=== PATIENT | female | born 2000 | race Caucasian/White ===

== ENCOUNTER 2019-05-06 22:59 | Emergency (ER) | payer SELFPAY ==
[~2019-05-06] VITALS: Ht 152.4 cm; Wt 57.7 kg
[~2019-05-06 22:59] MED LIST: ACET500C5 PO; CEPH-443 PO; PREN-93 PO
[2019-05-06 23:04] VITALS: BP 110/67; PULSE 77; RESP 18; Ht 152.4 cm; Wt 57.7 kg
[2019-05-07] MEDS ORDERED: ACETAMINOPHEN 500 MG TAB PO STA (00:31)
--- NOTE | 2019-05-07 00:31 | ERD ---
ER Documentation Chief Complaint Chief Complaint Pelvic pain X 3 days, LMP 04/16 HPI This is a 18-year-old female who presents here in the emergency department with complaints of pain and cramping that started 3 days ago. Stated that she did a home today and found that it was positive. LMP: March 20, 2019. DAT: Unknown. G1, . Denies headache, head injury, loss of consciousness, dizziness, neck pain, neck stiffness, throat pain, difficulty swallowing, difficulty breathing lying flat, shoulder pain, chest pain, back pain, abdominal pain, nausea, vomiting, constipation, diarrhea, urinary symptoms, or possibility being , loss of bowel and bladder control, trauma, injury, falls, difficulty walking due to pain, numbness or tingling sensation, calf pain, recent travel, recent major surgery in the last 3 weeks, calf pain, recent long travel, recent exposure to any illness, recent antibiotic use in the last 3 months, fever, chills, seizures. Past medical history: Denies. Surgical history: Denies. Social: Denies smoking, use of alcoholic beverages, use of illegal drugs. ROS All systems reviewed and are negative except as per history of present illness. Medications Home Meds Active Scripts Acetaminophen* (Tylophen*) 500 Mg Capsule, 1 CAP PO Q6H PRN for PAIN AND OR ELEVATED TEMP, #20 CAP Prov:CHARLIE MILES PA-C 05/10/19 Cephalexin* (Keflex*) 500 Mg Capsule, 500 MG PO BID for 5 Days, CAP Prov:CHARLIE MILES PA-C 05/10/19 Cephalexin* (Keflex*) 500 Mg Capsule, 500 MG PO TID for 7 Days, CAP Prov:ANIL MYERS F 05/07/19 Vit No.124/Iron/FA ( Vitamin Tablet) 1 Each Tablet, 1 EACH PO DAILY, #30 TAB Prov:RAMESH MYERSAR F 05/07/19 Acetaminophen* (Tylophen*) 500 Mg Capsule, 1 CAP PO Q6H PRN for PAIN AND OR ELEVATED TEMP, #20 CAP Prov:PASILABANRAMESHAR F 05/07/19 Allergies Allergies: Coded Allergies: No Known Allergy (Unverified , 05/06/19) Physical Exam Vitals Physical Exam Const: No acute distress Head: Atraumatic Eyes: Normal Conjunctiva. Eyeballs are not sunken. No signs of severe dehydration. ENT: Normal External Ears, Nose and Mouth. Neck: Full range of motion. No meningismus. No nuchal rigidity. No signs of meningeal irritation. Resp: Clear to auscultation bilaterally. No accessory muscle use in breathing. Cardio: Regular rate and rhythm, no murmurs Abd: Soft, non tender, non distended. Normal bowel sounds. Negative Louis sign. Negative Dovray sign (heel jar test). Negative psoas sign. Negative Rovsing sign. Able to jump 10 times without developing lower abdominal pain. Ambulatory with steady gait and without pain to lower abdomen. Skin: No petechiae or rashes. Color appears normal for ethnicity. No skin tenting. No signs of severe dehydration. Back: No midline or flank tenderness. No CVA tenderness. Ext: No cyanosis, or edema Neur: Awake and alert. No neurological deficits. Psych: Normal Mood and Affect Results 24 hrs Laboratory Tests Test 05/07/19 00:41 White Blood Count 9.5 10^3/ul Red Blood Count 4.52 10^6/ul Hemoglobin 12.9 g/dl Hematocrit 37.7 % Mean Corpuscular Volume 83.4 fl Mean Corpuscular Hemoglobin 28.5 pg Mean Corpuscular Hemoglobin Concent 34.2 g/dl Red Cell Distribution Width 12.1 % Platelet Count 283 10^3/UL Mean Platelet Volume 9.2 fl Immature Granulocytes % 0.300 % Neutrophils % 72.9 % Lymphocytes % 20.6 % Monocytes % 4.9 % Eosinophils % 1.0 % Basophils % 0.3 % Nucleated Red Blood Cells % 0.0 /100WBC Immature Granulocytes # 0.030 10^3/ul Neutrophils # 6.9 10^3/ul Lymphocytes # 2.0 10^3/ul Monocytes # 0.5 10^3/ul Eosinophils # 0.1 10^3/ul Basophils # 0.0 10^3/ul Nucleated Red Blood Cells # 0.0 10^3/ul Urine Color YELLOW Urine Clarity CLEAR Urine pH 6.0 Urine Specific [place] 1.011 Urine Ketones NEGATIVE mg/dL Urine Nitrite NEGATIVE mg/dL Urine Bilirubin NEGATIVE mg/dL Urine Urobilinogen NEGATIVE mg/dL Urine Leukocyte Esterase NEGATIVE Jero/ul Urine Hemoglobin NEGATIVE mg/dL Urine Glucose NEGATIVE mg/dL Urine Total Protein NEGATIVE mg/dl Urine Test POSITIVE Sodium Level 139 mmol/L Potassium Level 3.3 mmol/L Chloride Level 104 mmol/L Carbon Dioxide Level 23 mmol/L Anion Gap 12 Blood Urea Nitrogen 6 mg/dl Creatinine 0.51 mg/dl Est Glomerular Filtrat Rate mL/min > 60 mL/min Glucose Level 127 mg/dl Calcium Level 9.3 mg/dl Total Bilirubin 0.4 mg/dl Direct Bilirubin 0.00 mg/dl Indirect Bilirubin 0.4 mg/dl Aspartate Amino Transf (AST/SGOT) 21 IU/L Alanine Aminotransferase (ALT/SGPT) 16 IU/L Alkaline Phosphatase 68 IU/L Total Protein 7.2 g/dl Albumin 4.1 g/dl Globulin 3.10 g/dl Albumin/Globulin Ratio 1.32 Amylase Level 61 U/L Lipase 44 U/L Beta HCG, Quantitative 36660.0 mIU/ml Current Medications Medications Dose Sig/Promise Start Time Status Last (Trade) Ordered Route PRN Stop Time Admin Dose Reason Admin 500 mg ONCE STAT 05/07/19 DC 05/07/19 Acetaminophen PO 00:31 00:48 (Tylenol 05/07/19 00:36 Tab) Potassium 20 meq ONCE STAT 05/07/19 DC 05/07/19 Chloride PO 02:00 02:11 (Klor-Con 20) 05/07/19 02:01 Ondansetron 4 mg ONCE STAT 05/07/19 DC 05/07/19 HCl (Zofran ODT 02:00 02:11 Odt) 05/07/19 02:01 Lidocaine 20 ml ONCE ONCE 05/07/19 DC (Xylocaine SC 02:30 1% (Mdv) 20 05/07/19 02:31 ml) Procedures/MDM Diagnostic tests: Urinalysis: Reviewed. Culture urine: Sent. Type and Rh: Reviewed. hCG quantitative: Reviewed. Blood works: Reviewed. OB ultrasound: Single live intrauterine gestation of 6 weeks 2 days menstrual age by ultrasound dates. Expected date of delivery is 12/29/2019. Treatment: Tylenol. K-Dur. Procedure: Incision and drainage of paronychia. Lidocaine 1% 2 cc digital block. Scalpel was used to do a small incision at the base of left thumb. Drained mucopurulent discharge. Capillary feels to left thumb is less than 2 seconds. No subungual hematoma. No neurovascular deficits. Re-evaluation: No episode of emesis here in emergency department. Negative Louis sign. Negative Soledad sign (heel jar test). Negative psoas sign. Negative Rovsing sign. No CVA tenderness. Stated that she feels much better at this time and that she is ready to go home. Stated that she is comfortable to go home. Differential diagnosis I have low suspicion for cholecystitis, pancreatitis, sepsis, diverticulitis, diverticulitis with abscess, appendicitis, nephrolithiasis, pyelonephritis, obstructing kidney stones, septic stone, ovarian torsion, ovarian cyst rupture, ectopic . Final diagnosis: Abdominal pain in . Paronychia Prescription: Tylenol. vitamins. Keflex. Follow-up with OB in the next 24-48 hours. Come back here in the emergency department for any new symptoms or any worsening symptoms. All questions and concerns were answered. Patient and family members verbalized understanding and agreed with plan of care. Hemodynamically stable on discharge. Departure Diagnosis: Primary Impression: Pelvic pain affecting Additional Impression: Paronychia Condition: Stable Additional Instructions: Follow-up with OB in the next 24-48 hours. Come back here in the emergency department for any new symptoms or any worsening symptoms. ANIL MYERS May 07, 2019 00:31
[2019-05-07] MEDS ORDERED: ONDANSETRON (ODT) 4 MG TAB ODT STA (02:00)
[2019-05-07] MEDS ORDERED: POTASSIUM CHLORIDE (SR) 20 MEQ TAB PO STA (02:00)
[2019-05-07] MEDS ORDERED: LIDOCAINE 1% (MDV) 20 ML INJ SC ONE (02:30)
== END 2019-05-07 03:44 | disposition home or self-care (01) ==
LOC: FTE 22:59
DX: O26.891 Other specified pregnancy related conditions, first trimester (principal); R10.2 Pelvic and perineal pain; L03.011 Cellulitis of right finger; O99.711 Diseases of the skin and subcutaneous tissue complicating pregnancy, first trimester; Z3A.01 Less than 8 weeks gestation of pregnancy
CPT/HCPCS: 36415; 76801; 80053; 81003; 82150; 83690; 84702; 84703; 85025; 86900; 86901; 87086

== ENCOUNTER 2019-05-10 04:25 | Emergency (ER) | payer SELFPAY ==
[~2019-05-10] VITALS: Ht 162.6 cm; Wt 58.0 kg
[2019-05-10 04:35] VITALS: BP 121/82; PULSE 96; RESP 24; Ht 162.6 cm; Wt 58.0 kg
[2019-05-10] MEDS ORDERED: ACETAMINOPHEN 500 MG TAB PO STA (05:24)
--- NOTE | 2019-05-10 06:35 | ERD ---
ER Documentation Chief Complaint Chief Complaint Pt reports L thumb is more swollen than sunday HPI Patient 18-year-old female who is and was seen in the ED on Sunday for a swollen left thumb. Patient was discharged with antibiotics. Patient did not fill her antibiotics she is reporting back to the ED because she is still having pain and concerns that the antibiotics are not safe in . The patient was discharged with prescription for Keflex. The patient denies allergies to medication. The patient's vitals are in stable limits. The patient denies abdominal pain vaginal bleeding or any complications with this . Patient states she is in pain and rates the pain 8 out of 10. ROS All systems reviewed and are negative except as per history of present illness. Medications Home Meds Active Scripts Acetaminophen* (Tylophen*) 500 Mg Capsule, 1 CAP PO Q6H PRN for PAIN AND OR ELEVATED TEMP, #20 CAP Prov:CHARLIE MILES PA-C 05/10/19 Cephalexin* (Keflex*) 500 Mg Capsule, 500 MG PO BID for 5 Days, CAP Prov:CHARLIE MILES PA-C 05/10/19 Cephalexin* (Keflex*) 500 Mg Capsule, 500 MG PO TID for 7 Days, CAP Prov:ANIL MYERS F 05/07/19 Vit No.124/Iron/FA ( Vitamin Tablet) 1 Each Tablet, 1 EACH PO DAILY, #30 TAB Prov:MIKEJUSTINRAMESHANITRA F 05/07/19 Acetaminophen* (Tylophen*) 500 Mg Capsule, 1 CAP PO Q6H PRN for PAIN AND OR ELEVATED TEMP, #20 CAP Prov:MIKEANIL ANDERSON F 05/07/19 Allergies Allergies: Coded Allergies: No Known Allergy (Unverified , 05/06/19) PMhx/Soc Medical and Surgical Hx: pt denies Medical Hx, pt denies Surgical Hx Hx Alcohol Use: No Hx Substance Use: No Hx Tobacco Use: No Smoking Status: Never smoker FmHx Family History: No diabetes, No coronary disease, No other Physical Exam Vitals Vital Signs Date Temp Pulse Resp B/P (MAP) Pulse Ox O2 O2 Flow FiO2 Time Delivery Rate 05/10/19 97.8 96 24 121/82 99 04:35 (95) Physical Exam GENERAL: Moderate Distress CHEST: Clear to auscultation bilaterally. There are no rales, wheezes or rhonchi. HEART: Regular rate and rhythm. No murmurs, clicks, rubs or gallops. EXTREMITIES: mild swelling and deformity to left thumb with good range of motion good distal pulses no signs of open fractures or exposure of soft tissue. No skin pallor noted. Patient has intact gross motor function and distal pulses are present and equal bilaterally. Results 24 hrs Current Medications Medications Dose Sig/Promise Start Time Status Last (Trade) Ordered Route PRN Stop Time Admin Dose Reason Admin 500 mg ONCE STAT 05/10/19 DC 05/10/19 Acetaminophen PO 05:24 05/10/19 05:31 (Tylenol 05:25 Tab) Procedures/MDM ED course: The patient was stable throughout the ED course. The patient and/or family informed of laboratory and diagnostic imaging results throughout the ED course. Medications given in ER: Acetaminophen Patient tolerated medication well with no adverse reactions. Patient reported improvement in pain. Medical decision making: Is a 18-year-old female who is presented to ED for a left thumb infection. Patient was seen the other day in the ED and was sent home with a prescription for Keflex. Patient did not fill the antibiotic and had concerns because she is and did not want to take it. The patient has no abdominal pain vaginal bleeding or discomfort with this . Advised the patient she needs to fill the prescription because she has an abscess on her finger because she bites her nails. Advised the patient that this medication is safe during . The patient denies any allergies to medications. Patient has good function of the left thumb. She remains neurovascular intact there is no signs of trauma. The patient was given acetaminophen for pain at this time I have low suspicion for neurovascular injury, compartment syndrome, sepsis, osteomyelitis. Advised the patient to fill the medication area I advised the patient I will give her a refill medication in case she lost her prescription. All questions were answered upon discharge and patient is in agreement to the treatment plan. The patient will return to ED if symptoms worsen. I advised patient follow-up with primary care provider in 1 to 2 days. Prescription for home: Keflex Acetaminophen I have discussed with the patient proper use and common side effects to expert with the medication . I advised the patient/family to speak with the pharmacist dispensing the medication to be advised of any potential drug interactions with other medication or supplements they may be taking. Discharge: At this time, patient is stable for discharge and outpatient management. I have instructed the patient to follow-up with his\her primary care physician in 1 to 2 days. I have discussed with the patient the possibility of needing to see a specialist for further work-up and imaging studies if symptoms persist. I have instructed the patient to promptly return to the ER for any new or worsening symptoms including increased pain, fever, nausea, vomiting, weakness or LOC. The patient and\or family expressed understanding of and agreement with this plan. All questions were answered. Home care instructions were provided. Disclaimer: Inadvertent spelling and grammatical errors are likely due to EHR\dictation software use and do not reflect on the overall quality of patient care. Also, please note that the electronic time recorded on the note does not necessarily reflect the actual time of the patient encounter. Departure Diagnosis: Primary Impression: Paronychia Condition: Stable Referrals: [facility] YOU HAVE RECEIVED A MEDICAL SCREENING EXAM AND THE RESULTS INDICATE THAT YOU DO NOT HAVE A CONDITION THAT REQUIRES URGENT TREATMENT IN THE EMERGENCY DEPARTMENT. FURTHER EVALUATION AND TREATMENT OF YOUR CONDITION CAN WAIT UNTIL YOU ARE SEEN IN YOUR DOCTORS OFFICE WITHIN THE NEXT 1-2 DAYS. IT IS YOUR RESPONSIBILITY TO MAKE AN APPOINTMENT FOR FOLOW-UP CARE. IF YOU HAVE A PRIMARY DOCTOR --you should call your primary doctor and schedule an appointment IF YOU DO NOT HAVE A PRIMARY DOCTOR YOU CAN CALL OUR PHYSICIAN REFERRAL HOTLINE AT IF YOU CAN NOT AFFORD TO SEE A PHYSICIAN YOU CAN CHOSE FROM THE FOLLOWING [facility] [address] [facility]. [facility] [address] [facility] [facility] [address] [facility] [facility] [address] [facility] [address] [facility]. [facility]. [address] [facility]. [facility] YOU HAVE RECEIVED A MEDICAL SCREENING EXAM AND THE RESULTS INDICATE THAT YOU DO NOT HAVE A CONDITION THAT REQUIRES URGENT TREATMENT IN THE EMERGENCY DEPARTMENT. FURTHER EVALUATION AND TREATMENT OF YOUR CONDITION CAN WAIT UNTIL YOU ARE SEEN IN YOUR DOCTORS OFFICE WITHIN THE NEXT 1-2 DAYS. IT IS YOUR RESPONSIBILITY TO MAKE AN APPOINTMENT FOR FOLOW-UP CARE. IF YOU HAVE A PRIMARY DOCTOR --you should call your primary doctor and schedule and appointment IF YOU DO NOT HAVE A PRIMARY DOCTOR YOU CAN CALL OUR PHYSICIAN REFERRAL HOTLINE AT . IF YOU CAN NOT AFFORD TO SEE A PHYSICIAN YOU CAN CHOSE FROM THE FOLLOWING [facility] INSTITUTIONS: [facility] [address] [place] [address] [facility] [address] [place] [address] [facility] [address] [place] [address] [place] [address] [facility] [address] [place] [address] OFFICE FAX , [address] [place] [address] [address] [place] [address] [place] [address] [address] [facility] [address] [facility] [facility] [address] [address] [address] [place] [address] [facility] [address] [place] [address] [address] [facility] [address] [address], [facility] [address] [address] [address] [facility]. [address], [facility] [address] [address] [address] [place], [place] [address] Additional Instructions: Call your primary care doctor TOMORROW for an appointment during the next 1-2 days.See the doctor sooner or return here if your condition worsens before your appointment time. CHARLIE MILES PA-C May 10, 2019 06:35
== END 2019-05-10 05:57 | disposition home or self-care (01) ==
LOC: FTE 04:25
DX: O99.711 Diseases of the skin and subcutaneous tissue complicating pregnancy, first trimester (principal); L03.012 Cellulitis of left finger; Z3A.00 Weeks of gestation of pregnancy not specified
CPT/HCPCS: 99283